=== PATIENT | male | born 1960 ===

== ENCOUNTER 2021-11-30 14:37 | Observation (INO) | payer OTHER, MEDICARE ==
[~2021-11-30] VITALS: Ht 167.6 cm; Wt 80.5 kg
[2021-11-30] MEDS ORDERED: LORA10ER PO (16:25)
[2021-11-30] MEDS ORDERED: BUPR150ER PO (16:26)
[2021-11-30] MEDS ORDERED: TRAZ150T57 PO (16:26)
[2021-11-30] MEDS ORDERED: Flonase 0.05% N16 GM (16:26)
[2021-11-30] MEDS ORDERED: ASPI81CH PO (16:27)
[2021-11-30] MEDS ORDERED: OMEP20ER PO (16:27)
[2021-11-30] MEDS ORDERED: ATOR40TA PO (16:28)
--- NOTE | 2021-11-30 16:30 | NUR ---
ADMISSION: Pt arrived to room PCU4 via ambulance gurney. Pt A/Ox4. HR reg, tele shows NSR. BT hyperactive. LS clear. Pulses palp. Pt c/o 5/10 pain in epigastric/upper abd quad. States that this is tolerable. BP is slightly elevated. Pt temp 101.1. Pt states that he has rufina having cold sweats on and off over the past few days. Pt oriented to room and unit. Physicians notified of Pt arrival. Stable at this time. Call light in reach. Will monitor.
[2021-11-30] MEDS ORDERED: GABA100 PO (16:50)
--- NOTE | 2021-11-30 17:36 | NUR ---
Shift Summary: Pt arrived to PCU around 1630. Since arrival pt has done well. VS have remained stable. Physicians saw pt. Temp and pain will be treated with tylenal and per orders. Pt on a clear liquid diet. No acute changes since arrival. Report given to MONICA Agosto and care transfered.
[2021-11-30 17:49] LABS: BASOPHILS ABSOLUTE AUTO 0.06 K/mm3 (0.00-0.23); BASOPHILS PERCENT AUTO 0 % (0-2); EOSINOPHILS PERCENT AUTO 0 % (0-6); Hematocrit 37.1 % (37.0-53.0); Hemoglobin 12.8 g/dL (13.5-17.5); IMMATURE GRAN ABSOLUTE AUTO 0.19 K/mm3 (0.00-0.10); IMMATURE GRAN PERCENT AUTO 1 % (0-1); LYMPHOCYTES PERCENT AUTO 4 % (21-46); MONOCYTES ABSOLUTE AUTO 3.28 K/mm3 (0.16-1.47); MONOCYTES PERCENT AUTO 10 % (4-13); Mean Corpuscular HGB 31.8 pg (26.0-34.0); Mean Corpuscular HGB Conc 34.5 g/dL (31.5-36.5); Mean Corpuscular Volume 92 fL (80-100); NEUTROPHILS ABSOLUTE AUTO 27.29 K/mm3 (1.96-9.15); NEUTROPHILS PERCENT AUTO 85 % (41-73); Platelet Count 287 K/mm3 (150-400); RDW Coefficient Variation 15.2 % (11.7-14.2); RDW Standard Deviation 50.5 fL (35.1-46.3); Red Blood Cell Count 4.03 M/mm3 (4.30-5.90); White Blood Cell Count 32.22 K/mm3 (4.00-11.30)
[2021-11-30 17:51] LABS: Source, Urine Clean Catch
[2021-11-30 17:59] LABS: Bilirubin, Urine Neg (Neg); Blood, Urine 2+ (Neg); Color, Urine Yellow (P-Yellow); Glucose Qualitative, Urine Neg (Neg); Ketones, Urine Neg (Neg); Leukocyte Esterase, Urine Neg (Neg); Nitrite, Urine Neg (Neg); Protein, Urine Neg (Neg); Urobilinogen, Urine NORM (Normal)
[2021-11-30 18:10] LABS: Albumin, Blood 4.2 g/dL (3.4-5.0); Albumin/Globulin Ratio 1.4 (0.8-1.8); Bilirubin, Total 1.4 mg/dL (0.1-1.0); Bun/Creatinine Ratio 25.3 (12.0-20.0); Calcium, Blood 9.3 mg/dL (8.5-10.1); Creatinine, Blood 0.79 mg/dL (0.60-1.20); Total Protein, Blood 7.2 g/dL (6.4-8.2)
[2021-11-30 18:14] LABS: Appearance, Urine Hazy (Clear)
[2021-11-30 18:15] LABS: Bacteria Mod /hpf; Red Blood Cells, Urine 0-2 /hpf (0-2); Squamous Epithelial Cells Rare /hpf (Few); White Blood Cells, Urine 0-2 /hpf (0-5)
[2021-12-01 04:36] LABS: BASOPHILS ABSOLUTE AUTO 0.03 K/mm3 (0.00-0.23); BASOPHILS PERCENT AUTO 0 % (0-2); EOSINOPHILS ABSOLUTE AUTO 0.09 K/mm3 (0.00-0.68); EOSINOPHILS PERCENT AUTO 1 % (0-6); Hematocrit 36.5 % (37.0-53.0); Hemoglobin 12.1 g/dL (13.5-17.5); IMMATURE GRAN ABSOLUTE AUTO 0.07 K/mm3 (0.00-0.10); IMMATURE GRAN PERCENT AUTO 0 % (0-1); LYMPHOCYTES ABSOLUTE AUTO 2.13 K/mm3 (0.84-5.20); LYMPHOCYTES PERCENT AUTO 11 % (21-46); MONOCYTES ABSOLUTE AUTO 3.09 K/mm3 (0.16-1.47); MONOCYTES PERCENT AUTO 16 % (4-13); Mean Corpuscular HGB 31.4 pg (26.0-34.0); Mean Corpuscular HGB Conc 33.2 g/dL (31.5-36.5); Mean Corpuscular Volume 95 fL (80-100); Mean Platelet Volume 12.2 fL (9.1-12.4); NEUTROPHILS ABSOLUTE AUTO 13.72 K/mm3 (1.96-9.15); NEUTROPHILS PERCENT AUTO 72 % (41-73); Platelet Count 286 K/mm3 (150-400); RDW Coefficient Variation 15.5 % (11.7-14.2); RDW Standard Deviation 53.4 fL (35.1-46.3); Red Blood Cell Count 3.85 M/mm3 (4.30-5.90); White Blood Cell Count 19.13 K/mm3 (4.00-11.30)
[2021-12-01 04:59] LABS: Albumin, Blood 3.6 g/dL (3.4-5.0); Albumin/Globulin Ratio 1.3 (0.8-1.8); Bilirubin, Total 2.1 mg/dL (0.1-1.0); Bun/Creatinine Ratio 17.3 (12.0-20.0); Creatinine, Blood 0.98 mg/dL (0.60-1.20); Globulin, Blood 2.8 g/dL (2.2-4.0); Potassium, Blood 4.1 mmol/L (3.5-5.5); Total Protein, Blood 6.4 g/dL (6.4-8.2)
--- NOTE | 2021-12-01 05:29 | NUR ---
SHIFT SUMMARY ASSUMED CARE OF PT AROUND 1900. PT IS A/OX4. HEART SOUNDS REGULAR. NO CARDIAC EVENTS. PT SLEPT T/O THE NIGHT. PT NPO SINCE MIDNIGHT. INDEPENDENT TO BATHROOM.
[2021-12-01 10:23] LABS: Influenza A, PCR NEGATIVE (NEGATIVE); Influenza B, PCR NEGATIVE (NEGATIVE); Resp Syncytial Virus, PCR NEGATIVE (NEGATIVE); SARS-Cov-2 (COVID-19) PCR, MMC NEGATIVE (NEGATIVE)
--- NOTE | 2021-12-01 14:09 | NUR ---
PATIENT WAS TRANSFERRED VIA BED TO OR ROUGHLY AROUND 1345 NO SIGNS OF ACUTE DISTRESS, WAS WALKED PRIOR BY RN AND HEARTRATE RANGED FROM 63-74 WHILE WALKING WITH NO DIZZINESS, LIGHTHEADEDNESS OR WEAKNESS. PATIENT WALKED AT A BRISK PACE AROUND THE UNIT ACCOMPANIED BY RN TWICE, NO SOB OBSERVED. WILL CONTINUE TO MONITOR
--- NOTE | 2021-12-01 14:12 | NUR ---
12/01/21 1412 Flores Jett PATIENT RECEIVED ZOYSN 3.375GM AT 1206 PRIOR TO ARRIVING IN THE OR.
--- NOTE | 2021-12-01 17:05 | NUR ---
PATIENT TRANSFER: RECIEVING RN WAS GIVEN ORAL REPORT AT BEDSIDE, WITH NO QUESTIONS COMMENTS OR CONCERNS. NEITHER DID THE PATIENT, COMPLETE UNDERSTANDING FROM BOTH. TELE IN PLACE, INCISION SITE COVERD IN GAUZE THAT WAS PLACED TODAY AFTER THE SURGERY X 4 SITES, C/D/I. PATIENT IN NO SIGNS OF ACUTE STRESS AFEBRILE, AND DENIES PAIN AT THIS TIME. PATIENT HAS BEEN PLEASANT ALERT AND ORIENTED NO CONCERNS FROM THIS RN AT THIS TIME.
--- NOTE | 2021-12-01 18:36 | NUR ---
SHIFT SUMMARY PT TRANSFERRED APPROX 1700. A&OX4. VSS/RA. TELE NSR FIRST DEGREE BBB AT 64 BPM. TIFFANY PO REG DIET. VOIDING WELL. AMB INDEPENDENTLY IN ROOM. S/P LAP DEYVI, 4 LAP SITES DRY/INTACT. PAIN TREATED WITH NORCO 5 MG. WILL REPORT TO ONCOMING NOC RN.
[2021-12-02 04:47] LABS: BASOPHILS ABSOLUTE AUTO 0.02 K/mm3 (0.00-0.23); BASOPHILS PERCENT AUTO 0 % (0-2); EOSINOPHILS PERCENT AUTO 0 % (0-6); Hematocrit 35.6 % (37.0-53.0); IMMATURE GRAN ABSOLUTE AUTO 0.12 K/mm3 (0.00-0.10); IMMATURE GRAN PERCENT AUTO 1 % (0-1); LYMPHOCYTES ABSOLUTE AUTO 1.26 K/mm3 (0.84-5.20); LYMPHOCYTES PERCENT AUTO 6 % (21-46); MONOCYTES PERCENT AUTO 11 % (4-13); Mean Corpuscular HGB 31.7 pg (26.0-34.0); Mean Corpuscular HGB Conc 33.7 g/dL (31.5-36.5); Mean Corpuscular Volume 94 fL (80-100); Mean Platelet Volume 11.5 fL (9.1-12.4); NEUTROPHILS ABSOLUTE AUTO 17.34 K/mm3 (1.96-9.15); NEUTROPHILS PERCENT AUTO 82 % (41-73); Platelet Count 292 K/mm3 (150-400); RDW Coefficient Variation 14.9 % (11.7-14.2); RDW Standard Deviation 50.2 fL (35.1-46.3); Red Blood Cell Count 3.79 M/mm3 (4.30-5.90); White Blood Cell Count 21.04 K/mm3 (4.00-11.30)
[2021-12-02 05:20] LABS: Albumin, Blood 3.5 g/dL (3.4-5.0); Albumin/Globulin Ratio 1.2 (0.8-1.8); Bilirubin, Total 1.2 mg/dL (0.1-1.0); Bun/Creatinine Ratio 19.9 (12.0-20.0); Calcium, Blood 8.9 mg/dL (8.5-10.1); Creatinine, Blood 0.9 mg/dL (0.60-1.20); Potassium, Blood 4.5 mmol/L (3.5-5.5); Total Protein, Blood 6.5 g/dL (6.4-8.2)
[2021-12-02] MEDS ORDERED: HYDR1TAB94 PO (11:51)
[2021-12-02] MEDS ORDERED: LACT PO (11:54)
--- NOTE | 2021-12-02 14:39 | NUR ---
DISCHARGE SUMMARY PT A&OX4, VSS/RA, TIFFANY PO, VOIDING WELL, AMB INDEPENDENTLY IN ROOM, PAIN MANAGED WITH NORCO 5, IV DC'D. DC INS PROVIDED, PT REP UNDERSTANDING THOSE INSTRUCTIONS. NEW SCRIPT SENT TO [facility], PT TOOK 1 NARC SCRIPT. LEFT FLOOR VIA WC WITH RN, TO GO HOME WITH SISTER, WITH ALL PERSONAL POSSESSIONS INCLUDING DC PACKET.
== END 2021-12-02 14:29 | disposition home or self-care (01) ==
LOC: PCU 14:37 → SURS 14:38 → PCU 14:38 → SURS 12-01 17:22
PROVIDERS: Family Medicine; Surgery; ADMIT Hospitalist
DX: K80.00 Calculus of gallbladder with acute cholecystitis without obstruction (principal); R00.1 Bradycardia, unspecified; I25.10 Atherosclerotic heart disease of native coronary artery without angina pectoris; K21.9 Gastro-esophageal reflux disease without esophagitis; F51.04 Psychophysiologic insomnia; Z20.822 Contact with and (suspected) exposure to COVID-19; E78.5 Hyperlipidemia, unspecified; Z95.5 Presence of coronary angioplasty implant and graft; Z88.5 Allergy status to narcotic agent; Z79.82 Long term (current) use of aspirin; Z79.899 Other long term (current) drug therapy
CPT/HCPCS: 0241U; 36415; 71045; 76705; 80053; 81001; 83605; 84145; 84484; 85025; 87040; 87086; 88304; 93005; 93010; 93306; 96365; 96375; 96376; A9270; C1894; C9113; G0378; J0330; J1100; J1885; J2405; J2543; J2704; J3010; J7040; J7120